=== PATIENT | female | born 1960 | race Two or more races ===

== ENCOUNTER 2020-07-08 17:00 | Inpatient (IN) | payer SELFPAY ==
[~2020-07-08] VITALS: Ht 162.6 cm; Wt 59.0 kg
[2020-07-08] MEDS ORDERED: LORazepam 2MG/ML-1ML VIAL IM ONE (17:07)
[2020-07-08] MEDS ORDERED: diphenhdrAMINE HCL 50 MG/1 ML VL IM ONE (17:15)
[2020-07-08] MEDS ORDERED: HALOPERIDOL LACTATE 5 MG/ML INJ VIAL IM ONE (17:15)
[2020-07-08 17:53] LABS: Basophils # (auto) 0 10 ^3/uL (0-0.2); Basophils % (auto) 0.3 % (0.0-2.0); Eosinophils # (auto) 0 10 ^3/uL (0-0.8); Hematocrit 41.2 % (36.0-46.0); Hemoglobin 13.8 g/dL (12.2-16.2); Lymphocytes # (auto) 0.2 10 ^3/uL (0.4-5.4); Lymphocytes % (auto) 3.1 % (10.0-50.0); Mean Corpuscular Hemoglobin 31.7 pg (28.0-32.0); Mean Corpuscular Hgb Conc. 33.4 g/dL (32.0-36.0); Monocytes # (auto) 0.4 10 ^3/uL (0-1.3); Monocytes % (auto) 4.5 % (0.0-12.0); Neutrophils # (auto) 7.5 10 ^3/uL (1.6-8.6); Neutrophils % (auto) 92.1 % (37.0-80.0); Platelet Count (auto) 226 10^3/uL (140-450); Red Blood Cells 4.34 10^6/uL (4.0-5.20); Red Cell Distribution Width 13.9 % (11.8-14.3); White Blood Cell 8.1 10^3/uL (4.4-10.8)
[2020-07-08 18:09] LABS: Acetaminophen < 2.0 ug/mL (10-30); INR 1.05 (0.9-1.15); Partial Thromboplastin Time 21.4 sec (23.0-31.2); Salicylate < 1.7 mg/dL (2.8-20.0)
[2020-07-08 19:11] LABS: Alanine Aminotransferase 22 U/L (13-56); Albumin 3.5 g/dL (3.4-5.0); Alkaline Phosphatase 185 U/L (45-117); Anion Gap 10 (5-15); Aspartate Aminotransferase 24 U/L (15-37); Bilirubin, Total 0.5 mg/dL (0.2-1.0); Blood Alcohol < 3.0 mg/dL (0-5); Blood Urea Nitrogen 12 mg/dL (7-18); Calcium 8.1 mg/dL (8.5-10.1); Carbon Dioxide 24 mmol/L (21-32); Chloride 107 mmol/L (98-107); GFR African American 131 mL/min; GFR Non-African American 108 mL/min; Glucose 103 mg/dL (74-106); Magnesium 2.3 mg/dL (1.6-2.6); Sodium 141 mmol/L (136-145); Total Protein 6.9 g/dL (6.4-8.2)
[2020-07-08 19:13] LABS: Potassium 2.7 mmol/L (3.5-5.1)
[2020-07-08] MEDS ORDERED: SODIUM CHLORIDE 0.9% 1,000 ML IV ONE (21:00)
[2020-07-08] MEDS: POTASSIUM CHL 20MEQ/100ML 100 ML IV SCH ×2 (21:00→23:00)
[2020-07-08 22:29] LABS: Urine Bacteria FEW /hpf (None Seen); Urine Blood Negative /uL (Negative); Urine Mucus FEW (None Seen); Urine Specific Gravity 1.016 (1.001-1.035); Urine WBC 2 /hpf (0 - 5)
[2020-07-08 22:44] LABS: Alcohol, Urine < 3.0 mg/dL (0-10); Amphetamine Screen, Urine NEGATIVE (NEGATIVE); Barbiturate Scree,Urine NEGATIVE (NEGATIVE); Benzodiazephine Screen, Urine NEGATIVE (NEGATIVE); Cannabinoid Screen, Urine NEGATIVE (NEGATIVE); Cocaine Screen, Urine NEGATIVE (NEGATIVE); Opiate Scree,Urine NEGATIVE (NEGATIVE); Phencyclidine Screen, Urine NEGATIVE (NEGATIVE)
[2020-07-09] MEDS ORDERED: hydrALAZINE HCL 20 MG/ML VL IV PRN (02:30)
[2020-07-09] MEDS ORDERED: NITROGLYCERIN 0.4 MG SL TAB SL PRN (02:30)
[2020-07-09] MEDS ORDERED: ONDANSETRON HCL 4 MG/2 ML VIAL IV PRN (02:30)
[2020-07-09] MEDS ORDERED: ACETAMINOPHEN 325 MG TAB PO PRN (02:30)
[2020-07-09] MEDS ORDERED: LORazepam 2MG/ML-1ML VIAL IV PRN (02:30)
[2020-07-09] MEDS ORDERED: MORPHINE SULF INJ 2 MG/ML SYRINGE 1ML IV PRN (02:30)
[2020-07-09] MEDS: SODIUM CHLORIDE 0.9% 1,000 ML IV SCH ×2 (02:30→19:30)
[2020-07-09] MEDS ORDERED: DOCUSATE SOD 100 MG CAP PO PRN (02:30)
[2020-07-09 03:25] LABS: Basophils # (auto) 0 10 ^3/uL (0-0.2); Basophils % (auto) 0.3 % (0.0-2.0); Eosinophils # (auto) 0 10 ^3/uL (0-0.8); Eosinophils % (auto) 0.2 % (0.0-7.0); Hematocrit 44.2 % (36.0-46.0); Hemoglobin 14.9 g/dL (12.2-16.2); Lymphocytes # (auto) 0.7 10 ^3/uL (0.4-5.4); Lymphocytes % (auto) 9.6 % (10.0-50.0); Mean Corpuscular Hemoglobin 32.1 pg (28.0-32.0); Mean Corpuscular Hgb Conc. 33.8 g/dL (32.0-36.0); Monocytes # (auto) 0.7 10 ^3/uL (0-1.3); Monocytes % (auto) 9.8 % (0.0-12.0); Neutrophils # (auto) 5.7 10 ^3/uL (1.6-8.6); Neutrophils % (auto) 80.1 % (37.0-80.0); Nucleated Red Blood Cells % 0.1 %; Platelet Count (auto) 236 10^3/uL (140-450); Red Blood Cells 4.65 10^6/uL (4.0-5.20); Red Cell Distribution Width 14.1 % (11.8-14.3); White Blood Cell 7.1 10^3/uL (4.4-10.8)
[2020-07-09 03:44] LABS: INR 1.06 (0.9-1.15); Partial Thromboplastin Time 27.6 sec (23.0-31.2)
[2020-07-09 03:47] LABS: Potassium 3.6 mmol/L (3.5-5.1)
[2020-07-09 03:55] LABS: Albumin 3.5 g/dL (3.4-5.0); BUN/Creatinine Ratio 13.9; Bilirubin, Total 0.6 mg/dL (0.2-1.0); Calcium 8.4 mg/dL (8.5-10.1)
[2020-07-09] MEDS: MULTIPLE VITAMIN TAB PO SCH (09:58)
[2020-07-09] MEDS: PANTOPRAZOLE 40 MG/10 ML VIAL INJ IV SCH (09:58)
[2020-07-09] MEDS: ZINC SULFATE 220mg CAP or TAB PO SCH (09:58)
[2020-07-09] MEDS: ASCORBIC ACID 500 MG TAB PO SCH ×2 (09:58→22:00)
[2020-07-09] MEDS: ENOXAPARIN SOD 40 MG/0.4 ML SYRINGE SC SCH (10:00)
[2020-07-09] MEDS ORDERED: cloNIDine HCL 0.1 MG TAB PO PRN (12:00)
[2020-07-09] MEDS ORDERED: HALOPERIDOL LACTATE 5 MG/ML INJ VIAL IM PRN (13:00)
[2020-07-09] MEDS ORDERED: HALOPERIDOL LACTATE 5 MG/ML INJ VIAL ONE (13:02)
[2020-07-10] MEDS: ASCORBIC ACID 500 MG TAB PO SCH ×2 (10:35→23:51)
[2020-07-10] MEDS: PANTOPRAZOLE 40 MG/10 ML VIAL INJ IV SCH (10:35)
[2020-07-10] MEDS: ZINC SULFATE 220mg CAP or TAB PO SCH (10:35)
[2020-07-10] MEDS: ENOXAPARIN SOD 40 MG/0.4 ML SYRINGE SC SCH (10:35)
[2020-07-10] MEDS: MULTIPLE VITAMIN TAB PO SCH (10:35)
[2020-07-10 10:42] LABS: Basophils # (auto) 0 10 ^3/uL (0-0.2); Basophils % (auto) 0.2 % (0.0-2.0); Eosinophils # (auto) 0 10 ^3/uL (0-0.8); Hematocrit 43.3 % (36.0-46.0); Hemoglobin 14.4 g/dL (12.2-16.2); Lymphocytes # (auto) 0.5 10 ^3/uL (0.4-5.4); Mean Corpuscular Hemoglobin 31.4 pg (28.0-32.0); Mean Corpuscular Hgb Conc. 33.1 g/dL (32.0-36.0); Mean Corpuscular Volume 94.7 fL (80.0-100.0); Monocytes # (auto) 0.4 10 ^3/uL (0-1.3); Monocytes % (auto) 7.5 % (0.0-12.0); Neutrophils % (auto) 84.3 % (37.0-80.0); Platelet Count (auto) 229 10^3/uL (140-450); Red Blood Cells 4.57 10^6/uL (4.0-5.20); Red Cell Distribution Width 13.7 % (11.8-14.3); White Blood Cell 5.9 10^3/uL (4.4-10.8)
[2020-07-10] MEDS: SODIUM CHLORIDE 0.9% 1,000 ML IV SCH (12:00)
[2020-07-10 12:18] LABS: Albumin 3.2 g/dL (3.4-5.0); BUN/Creatinine Ratio 26.8; Bilirubin, Total 0.9 mg/dL (0.2-1.0); Calcium 8.3 mg/dL (8.5-10.1); Potassium 3.1 mmol/L (3.5-5.1); Total Protein 6.7 g/dL (6.4-8.2)
[2020-07-10] MEDS ORDERED: POTASSIUM EFFERVESENT TAB 25 MEQ PO ONE (14:30)
[2020-07-10] MEDS: Ensure HIGH Protein Chocolate 8oz Bottle PO SCH (19:02)
[2020-07-11] MEDS: SODIUM CHLORIDE 0.9% 1,000 ML IV SCH (05:42)
[2020-07-11 05:50] LABS: Basophils # (auto) 0.1 10 ^3/uL (0-0.2); Basophils % (auto) 1.6 % (0.0-2.0); Eosinophils # (auto) 0 10 ^3/uL (0-0.8); Eosinophils % (auto) 0.9 % (0.0-7.0); Hematocrit 42.3 % (36.0-46.0); Lymphocytes # (auto) 0.6 10 ^3/uL (0.4-5.4); Lymphocytes % (auto) 12.2 % (10.0-50.0); Mean Corpuscular Hemoglobin 30.9 pg (28.0-32.0); Mean Corpuscular Hgb Conc. 33.1 g/dL (32.0-36.0); Mean Corpuscular Volume 93.6 fL (80.0-100.0); Monocytes # (auto) 0.5 10 ^3/uL (0-1.3); Monocytes % (auto) 11.4 % (0.0-12.0); Neutrophils # (auto) 3.3 10 ^3/uL (1.6-8.6); Neutrophils % (auto) 73.9 % (37.0-80.0); Nucleated Red Blood Cells % 0.1 %; Platelet Count (auto) 225 10^3/uL (140-450); Red Blood Cells 4.52 10^6/uL (4.0-5.20); Red Cell Distribution Width 13.9 % (11.8-14.3); White Blood Cell 4.5 10^3/uL (4.4-10.8)
[2020-07-11 06:13] LABS: Calcium 8.3 mg/dL (8.5-10.1); Potassium 3.4 mmol/L (3.5-5.1)
[2020-07-11 06:17] LABS: BUN/Creatinine Ratio 31.1
[2020-07-11] MEDS: Ensure HIGH Protein Chocolate 8oz Bottle PO SCH ×3 (08:30→18:13)
[2020-07-11] MEDS: ZINC SULFATE 220mg CAP or TAB PO SCH (10:17)
[2020-07-11] MEDS: MULTIPLE VITAMIN TAB PO SCH (10:17)
[2020-07-11] MEDS: PANTOPRAZOLE 40 MG/10 ML VIAL INJ IV SCH (10:17)
[2020-07-11] MEDS: ASCORBIC ACID 500 MG TAB PO SCH (10:17)
[2020-07-11] MEDS: ENOXAPARIN SOD 40 MG/0.4 ML SYRINGE SC SCH (10:17)
[2020-07-12] MEDS: SODIUM CHLORIDE 0.9% 1,000 ML IV SCH ×2 (00:19→13:50)
[2020-07-12] MEDS: ASCORBIC ACID 500 MG TAB PO SCH ×3 (00:19→22:23)
[2020-07-12] MEDS: Ensure HIGH Protein Chocolate 8oz Bottle PO SCH ×3 (08:15→18:26)
[2020-07-12] MEDS: PANTOPRAZOLE 40 MG/10 ML VIAL INJ IV SCH (10:00)
[2020-07-12] MEDS: ZINC SULFATE 220mg CAP or TAB PO SCH (10:00)
[2020-07-12] MEDS: ENOXAPARIN SOD 40 MG/0.4 ML SYRINGE SC SCH (10:00)
[2020-07-12] MEDS: MULTIPLE VITAMIN TAB PO SCH (10:00)
[2020-07-13] MEDS: SODIUM CHLORIDE 0.9% 1,000 ML IV SCH (06:30)
[2020-07-13 08:56] VITALS: BP 112/60
[2020-07-13] MEDS: ENOXAPARIN SOD 40 MG/0.4 ML SYRINGE SC SCH (10:00)
[2020-07-13] MEDS: ASCORBIC ACID 500 MG TAB PO SCH (10:27)
[2020-07-13] MEDS: ZINC SULFATE 220mg CAP or TAB PO SCH (10:27)
[2020-07-13] MEDS: MULTIPLE VITAMIN TAB PO SCH (10:27)
[2020-07-13] MEDS: Ensure HIGH Protein Chocolate 8oz Bottle PO SCH ×3 (10:32→17:54)
[2020-07-13] MEDS: PANTOPRAZOLE 40 MG/10 ML VIAL INJ IV SCH (10:33)
[2020-07-13 13:00] VITALS: BP 143/80
[2020-07-13 15:02] VITALS: BP 143/80
[2020-07-13 17:00] VITALS: BP 111/69
== END 2020-07-13 20:45 | disposition home or self-care (01) | DRG 917 ==
LOC: EDBD 17:00 → ER 17:00 → TELE 07-09 02:23 → TELE-WESTW 07-13 08:23
PROVIDERS: ADMIT Nurse Practitioner Family; ATTEND Family Medicine
DX: T50.902A Poisoning by unspecified drugs, medicaments and biological substances, intentional self-harm, initial encounter (principal); G92 Toxic encephalopathy; E44.0 Moderate protein-calorie malnutrition; F17.200 Nicotine dependence, unspecified, uncomplicated; E87.6 Hypokalemia; Z68.22 Body mass index [BMI] 22.0-22.9, adult; Y92.89 Other specified places as the place of occurrence of the external cause; Z20.828 Contact with and (suspected) exposure to other viral communicable diseases
CPT/HCPCS: 36415; 70450; 80048; 80053; 80307; 80320; 80329; 81001; 82962; 83735; 84484; 85025; 85610; 85730; 87086; 87426; C9113; G0378; J3480